=== PATIENT | male | born 1955 | race Caucasian/White ===

== ENCOUNTER 2018-03-28 08:35 | Outpatient (CLI) | payer BC ==
[2018-03-28 09:37] LABS: #Basophils 0.1 thou/uL (0.0-0.2); #Eosinphils 0.2 thou/uL (0.0-0.7); #Lymphocytes 1.4 thou/uL (1.20-3.40); #Monocytes 0.7 thou/uL (0.11-0.59); #Neutrophils 3.6 thou/uL (1.40-6.50); %Basophils 1.3 % (0.0-1.0); %Eosinophils 2.8 % (0.0-10.0); %Lymphocytes 23.9 % (21.0-51.0); %Monocytes 11.4 % (0.0-10.0); %Neutrophils 60.7 % (42.0-75.0); Hemoglobin 14.6 g/dL (14.0-18.0); Mean Corpuscular HGB CONC 34.6 g/dL (32.0-36.0); Mean Corpuscular Hemoglobin 32.2 pg (27.0-31.0); Mean Corpuscular Volume 92.9 fL (78.0-98.0); Mean Platelet Volume 6.3 fL (7.4-10.4); Platelet Count 271 thou/uL (130-400); RBC Distribution Width 10.7 % (11.5-14.5); Red Blood Cell (RBC) Count 4.54 mill/uL (4.70-6.10); White Blood Cell (WBC) Count 5.9 thou/uL (4.8-10.8)
[2018-03-28 09:54] LABS: ALT (SGPT) 25 U/L (8-55); AST (SGOT) 34 U/L (5-34); Albumin 4.9 g/dL (3.4-4.8); Alkaline Phosphatase 99 U/L (40-150); Anion Gap 18 mmol/L (10-20); BUN (Urea Nitrogen) 25 mg/dL (8.4-25.7); Bilirubin, Total 1.8 mg/dL (0.2-1.2); Calc. Creatinine Clearance 0 mL/min (70-130); Calcium 10.3 mg/dL (7.8-10.44); Carbon Dioxide 22 mmol/L (23-31); Chloride 105 mmol/L (98-107); Estimated GFR-MDRD 64; Globulin 3.1 g/dL (2.4-3.5); Glucose 94 mg/dL (80-115); Potassium 4.6 mmol/L (3.5-5.1); Sodium 140 mmol/L (136-145)
--- NOTE | 2018-03-29 15:14 | EKG ---
Test Reason : Blood Pressure : / mmHG Vent. Rate : 057 BPM Atrial Rate : 057 BPM P-R Int : 146 ms QRS Dur : 098 ms QT Int : 410 ms P-R-T Axes : 048 089 073 degrees QTc Int : [address] elevation, consider early repolarization, pericarditis, or injury Abnormal ECG No previous ECGs available Confirmed by CHUCKIE WELLS MD ([id number]) on 03/29/2018 3:13:40 PM Referred By: PORFIRIO Confirmed By:CHUCKIE WELLS MD
== END 2018-03-28 08:36 | disposition home or self-care (01) ==
LOC: LABBT 08:35
PROVIDERS: ATTEND Surgery
DX: Z01.818 Encounter for other preprocedural examination (principal); K40.90 Unilateral inguinal hernia, without obstruction or gangrene, not specified as recurrent
CPT/HCPCS: 80053; 85025; 93005; 93010

== ENCOUNTER 2018-04-09 05:47 | Day surgery (SDC) | payer BC ==
[2018-03-28 09:00] VITALS: BMI 21.2
[2018-04-09] MEDS ORDERED: CEFAZOLIN/Water 2 GM/20 ML SYRINGE ONE (06:23)
[2018-04-09] MEDS ORDERED: Bupivacaine/Epinephrine 0.25% 30 ML VIAL ONE (06:46)
--- NOTE | 2018-04-09 06:56 | HP ---
CHIEF COMPLAINT: Left inguinal hernia. HISTORY OF PRESENT ILLNESS: The patient is a 62-year-old male who has developed a painful bulge in h is left groin. He was found to have a hernia. He has had a previous right inguinal hernia repair 20 years ago. PAST MEDICAL HISTORY: Significant for hypertension, history of skin cancer. PAST SURGICAL HISTORY: Include the right inguinal hernia repair. He has had a lipoma removed from h is leg. MEDICATIONS: Lunesta, valsartan. ALLERGIES: No known drug allergies. SOCIAL HISTORY: He is . No tobacco, no alcohol. PHYSICAL EXAMINATION: VITAL SIGNS: Height 5 feet 8, weight 138, body mass index 21. Blood pressure 160/104, pulse 58. GENERAL: Well-developed, well-nourished male in no apparent distress. HEENT: Unremarkable. LUNGS: Clear. HEART: Regular rate and rhythm. ABDOMEN: Soft, nondistended, nontender. He has a reducible left inguinal hernia. No right-sided he rnia. EXTREMITIES: Good pulses. No pedal edema. ASSESSMENT: Left inguinal hernia. PLAN: Left inguinal hernia repair with mesh. CONSENT: I have discussed the planned procedure as well as risk of bleeding, infection, recurrence. He understands and gives informed consent.
[2018-04-09] MEDS ORDERED: Midazolam HCl 2 mg/2 ml Vial ONE (06:57)
[2018-04-09] MEDS ORDERED: Fentanyl 100 MCG/2 ML VIAL ONE (07:24)
--- NOTE | 2018-04-09 08:48 | OP ---
DATE OF PROCEDURE: 04/09/2018 PREOPERATIVE DIAGNOSIS: Left inguinal hernia. SURGEON: Corwin Aguila M.D. PROCEDURE: Left inguinal hernia repair with mesh. INDICATIONS: This is a 62-year-old male with a painful bulge in the left groin and found to have a h ernia. FINDINGS: Left indirect inguinal hernia. PROCEDURE IN DETAIL: After informed consent was obtained, the patient was taken to the operating amy m and given general endotracheal anesthesia. He was placed in the supine position. His groin was pr epped and draped in usual fashion. Local anesthesia infiltrated subcutaneously and deep. A transver se left inguinal incision was performed. The subcu divided sharply. The fascia of the external obli que was incised in direction of its fibers through the external ring. Spermatic cord isolated with a [place] drain. Cremasteric fibers . Hernia sac was found. This was dissected from surrou nding cord structures down to the internal ring and reduced. Reduction was maintained utilizing a PH S hernia system placed in the preperitoneal space, laid out anteriorly. It was sutured to the pubic tubercle medially. A notch was cut out for the spermatic cord. Laterally, it was tucked under the e xternal oblique fascia. Hemostasis achieved. The external oblique fascia closed with a running 3-0 Vicryl. Kt's closed with interrupted 3-0 Vicryl and skin closed with a running subcuticular 4-0 Rapide. Steri-Strips applied. Sterile bandage applied. The patient tolerated the procedure well an d was transferred to recovery in good condition. Sponge and needle count verified correct x2.
[2018-04-09] MEDS ORDERED: HYDROcodone/Acetaminophen 5/325 mg Tablet ONE (10:32)
== END 2018-04-09 10:40 | disposition home or self-care (01) ==
LOC: SDC 05:47
PROVIDERS: ATTEND Surgery
PROC: 0YU60JZ Supplement Left Inguinal Region with Synthetic Substitute, Open Approach (ICD-10-PCS; principal; 2018-04-09)
DX: K40.90 Unilateral inguinal hernia, without obstruction or gangrene, not specified as recurrent (principal); I10 Essential (primary) hypertension; Z79.899 Other long term (current) drug therapy
CPT/HCPCS: C1781; J2250; J3010

== ENCOUNTER 2018-05-07 08:09 | Outpatient (CLI) | payer BC ==
--- NOTE | 2018-05-07 09:39 | ULT ---
SCROTAL SONOGRAM WITH DUPLEX EVALUATION: History: Left testicular pain. FINDINGS: Right testicle is 4.1 cm and left is 4.0 cm. Each has a normal appearance with good color and spectra l doppler flow. Lobular cysts of the right epididymis measure up to 2.7 cm greatest diameter. Small l eft epididymal head cyst. Small amount of bilateral scrotal fluid, noncomplicated. IMPRESSION: 1. No evidence of testicular mass or torsion. 2. Epididymal cysts, larger on the right than the left. No evidence of complication. 3. Small bilateral hydroceles without evidence of complication. POS: [facility]
== END 2018-05-07 08:10 | disposition home or self-care (01) ==
LOC: BICULT 08:09
PROVIDERS: ATTEND Surgery
DX: N50.819 Testicular pain, unspecified (principal); N43.3 Hydrocele, unspecified; N50.3 Cyst of epididymis
CPT/HCPCS: 76870; 93976